=== PATIENT | male | born 2000 | race Caucasian/White ===

== ENCOUNTER 2024-01-12 13:53 | Emergency (ER) | payer BC, SELFPAY ==
[2024-01-12 13:59] VITALS: BP 127/82; PULSE 86; RESP 16; TEMP 36.7; O2SAT 99; BMI 23.7
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
[2024-01-12] MEDS: IBUPROFEN 600 MG TABLET PO (14:39)
[2024-01-12] MEDS: LIDOCAINE/EPINEP/TETRACAINE 3 ML GEL..ML. TOPICAL (14:39)
[2024-01-12 16:00] VITALS: BP 131/79; PULSE 94; RESP 16; O2SAT 99
== END 2024-01-12 16:29 | disposition home or self-care (01) ==
PROVIDERS: Emergency Provider Emergency Medicine
DX: S02.612A Fracture of condylar process of left mandible, initial encounter for closed fracture (principal); V18.0XXA Pedal cycle driver injured in noncollision transport accident in nontraffic accident, initial encounter
CPT/HCPCS: 70450; 70486; 99284; A9270